=== PATIENT | male | born 1985 | race Caucasian/White ===

== ENCOUNTER 2022-05-26 16:05 | Emergency (ER) | payer SELFPAY ==
[2022-05-26 16:13] VITALS: BP 113/67; PULSE 80; RESP 18; TEMP 98.1; BMI 24.5
[2022-05-26] MEDS ORDERED: DIPHTH,PERTUSS(ACELL),TET 0.5 ML DISP.SYRIN IM ONE ×2 (17:34→17:38)
== END 2022-05-26 18:50 | disposition home or self-care (01) ==
LOC: JERFT 16:05
PROC: 0HQ0XZZ Repair Scalp Skin, External Approach (ICD-10-PCS; principal; 2022-05-26)
PROC: 3E0234Z Introduction of Serum, Toxoid and Vaccine into Muscle, Percutaneous Approach (ICD-10-PCS; 2022-05-26)
DX: S01.01XA Laceration without foreign body of scalp, initial encounter (principal); W22.8XXA Striking against or struck by other objects, initial encounter
CPT/HCPCS: 90715; 99282-25

== ENCOUNTER 2022-06-01 18:21 | Emergency (ER) | payer SELFPAY ==
[2022-06-01 18:48] VITALS: BP 102/65; PULSE 80; RESP 18; TEMP 98.6; BMI 24.5
== END 2022-06-01 19:17 | disposition home or self-care (01) ==
LOC: JERFT 18:21 → JER 18:21 → JERFT 19:17
DX: Z48.02 Encounter for removal of sutures (principal)
CPT/HCPCS: 99281-25